=== PATIENT | male | born 1965 | race Caucasian/White ===

== ENCOUNTER 2023-03-07 07:11 | Day surgery (SDC) | payer MEDICARE, OTHER ==
[~2023-03-07] VITALS: Ht 157.5 cm; Wt 58.0 kg
[~2023-03-07 07:11] MED LIST: KETOROLAC TROMETHAMINE 0.5% 5 ML OPHTHALMIC SOLUTION ONE; MOXIFLOXACIN HCL 0.5% 3 ML OPHTHALMIC SOLUTION ONE; PHENYLEPHRINE HCL 2.5% 2 ML OPHTHALMIC SOLUTION ONE; RINGERS SOLUTION,LACTATED 500 ML IV ONE; SODIUM CHLORIDE 0.9% 500 ML IV ONE; TROPICAMIDE 1% 2 ML OPHTHALMIC SOLUTION ONE
[2023-03-07] MEDS ORDERED: SODIUM CHLORIDE 0.9% 500 ML IV ONE (08:15)
[2023-03-07] MEDS ORDERED: CARV3 PO (08:22)
[2023-03-07] MEDS ORDERED: CLON0.2T PO (08:22)
[2023-03-07] MEDS ORDERED: LINA5TAB PO (08:22)
[2023-03-07] MEDS ORDERED: SEVE0.8P6 PO (08:22)
[2023-03-07] MEDS ORDERED: MELA5TAB40 PO (08:22)
[2023-03-07] MEDS ORDERED: NIFE90TA65 PO (08:22)
[2023-03-07] MEDS ORDERED: TRAZ-257 PO (08:22)
[2023-03-07] MEDS: KETOROLAC TROMETHAMINE 0.5% 5 ML OPHTHALMIC SOLUTION OD SCH ×3 (08:36→08:47)
[2023-03-07] MEDS: TROPICAMIDE 1% 2 ML OPHTHALMIC SOLUTION OD SCH ×3 (08:40→08:53)
[2023-03-07] MEDS: PHENYLEPHRINE HCL 2.5% 2 ML OPHTHALMIC SOLUTION OD SCH ×3 (08:40→08:53)
[2023-03-07] MEDS: MOXIFLOXACIN HCL 0.5% 3 ML OPHTHALMIC SOLUTION OD SCH ×3 (08:40→08:53)
[2023-03-07 09:07] LABS: GLUCOMETER DEV NAME(LOC) SDS.
[2023-03-07] MEDS ORDERED: MIDAZOLAM HCL 2 MG/2 ML VIAL IVP ONE (12:00)
[2023-03-07] MEDS ORDERED: FentaNYL CITRATE PF 100 MCG/2 ML VIAL IVP ONE (12:00)
== END 2023-03-07 12:10 | disposition home or self-care (01) ==
LOC: SURGERY 07:11
PROVIDERS: ATTEND Ophthalmology
DX: H25.11 Age-related nuclear cataract, right eye (principal); I12.0 Hypertensive chronic kidney disease with stage 5 chronic kidney disease or end stage renal disease; N18.6 End stage renal disease; E11.22 Type 2 diabetes mellitus with diabetic chronic kidney disease; Z79.899 Other long term (current) drug therapy; Z86.73 Personal history of transient ischemic attack (TIA), and cerebral infarction without residual deficits
CPT/HCPCS: 66984; 82962; 93005; J3010; J2250; J7120; J7040; V2632

== ENCOUNTER 2024-08-01 11:08 | Emergency (ER) | payer MEDICARE, MEDICAID ==
[~2024-08-01] VITALS: Ht 157.5 cm; Wt 61.0 kg
[~2024-08-01 11:08] MED LIST changes: +ASPI-1450 PO; +ATOR10TA69 PO; +CARV25 PO; +CLOP75TA60 PO; +FOLI0.8T54 PO; -KETOROLAC TROMETHAMINE 0.5% 5 ML OPHTHALMIC SOLUTION ONE; -MOXIFLOXACIN HCL 0.5% 3 ML OPHTHALMIC SOLUTION ONE; +NIFE90TA91 PO; -PHENYLEPHRINE HCL 2.5% 2 ML OPHTHALMIC SOLUTION ONE; -RINGERS SOLUTION,LACTATED 500 ML IV ONE; +SEVE800T7 PO; -SODIUM CHLORIDE 0.9% 500 ML IV ONE; -TROPICAMIDE 1% 2 ML OPHTHALMIC SOLUTION ONE
[2024-08-01 11:20] VITALS: BP 172/68; PULSE 75; RESP 16; TEMP 98.3; O2SAT 98
== END 2024-08-01 12:24 | disposition left against medical advice (07) ==
LOC: EMS 11:08
DX: R22.41 Localized swelling, mass and lump, right lower limb (principal); R73.9 Hyperglycemia, unspecified; Z53.21 Procedure and treatment not carried out due to patient leaving prior to being seen by health care provider
CPT/HCPCS: 82962